=== PATIENT | male | born 1955 | race Caucasian/White ===

== ENCOUNTER 2023-10-26 07:14 | Emergency (ER) | payer MEDICARE, OTHER ==
[2023-10-26] MEDS ORDERED: Naproxen 500 MG TAB ONE (07:52)
== END 2023-10-26 07:59 | disposition home or self-care (01) ==
LOC: BURERS 07:14
DX: M77.8 Other enthesopathies, not elsewhere classified (principal); I10 Essential (primary) hypertension; E11.9 Type 2 diabetes mellitus without complications; Z87.891 Personal history of nicotine dependence